=== PATIENT | female | born 1960 | race Hispanic/Latino ===

== ENCOUNTER 2017-02-02 13:50 | Emergency (ER) | payer OTHER ==
[2017-02-02 14:01] VITALS: BP 119/69; RESP 16; TEMP 97.9; O2SAT 100
--- NOTE | 2017-02-02 15:48 | ED PDOC ---
HPI: General Adult Time Seen by Provider: 02/02/17 14:08 Chief Complaint (Nursing): Abnormal Skin Integrity Chief Complaint (Provider): fall History Per: Patient Additional Complaint(s): pt c/o chin lac and L hand pain since trip and fall on sidewalk [employer]. no LOC, h/ a, dizziness, neck pain, cp, abd pain or other injury. Past Medical History Reviewed: Historical Data, Nursing Documentation, Vital Signs Vital Signs: Last Vital Signs Temp 97.9 F 02/02/17 13:57 Pulse 93 H 02/02/17 13:57 Resp 16 02/02/17 13:57 BP 119/69 02/02/17 13:57 Pulse Ox 100 02/02/17 16:01 - Medical History PMH: HTN (no meds) - Family History Family History: States: No Known Family Hx - Social History Current smoker - smoking cessation education provided: No Alcohol: None Drugs: Denies - Immunization History Hx Tetanus Toxoid Vaccination: No - Allergies Allergies/Adverse Reactions: Allergies Allergy/AdvReac Type Severity Reaction Status Date / Time cefdinir Allergy URTICARIA Verified 02/02/17 15:04 strawberry Allergy URTICARIA Verified 02/02/17 15:04 tomato Allergy URTICARIA Verified 02/02/17 15:04 walnut Allergy URTICARIA Verified 02/02/17 15:04 Review of Systems ROS Statement: Except As Marked, All Systems Reviewed And Found Negative Musculoskeletal: Positive for: Hand Pain Physical Exam - Reviewed Nursing Documentation Reviewed: Yes Vital Signs Reviewed: Yes - Physical Exam Appears: Positive for: Non-toxic, No Acute Distress Head Exam: Positive for: ATRAUMATIC, NORMAL INSPECTION, NORMOCEPHALIC Skin: Positive for: Normal Color, Warm, DRY Eye Exam: Positive for: EOMI, Normal appearance, PERRL ENT: Positive for: Other (2cm L shaped chin lac. mandible tender R sided. TMJs nontender. ) Neck: Positive for: Normal, Painless ROM Cardiovascular/Chest: Positive for: Regular Rate, Rhythm Respiratory: Positive for: CNT, Normal Breath Sounds Gastrointestinal/Abdominal: Positive for: Normal Exam, Bowel Sounds, Soft. Negative for: Tenderness Back: Positive for: Normal Inspection Extremity: Positive for: Other (L hand tender 4, 5th MC and hypothenar eminence w/o echymosis or deformity. abrasions to 4, 5th fingers. flex/ext 3/5 per pain. n/v intact distally. other extremities wnl. 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 Negative for: Motor/Sensory Deficits - ECG O2 Sat by Pulse Oximetry: 100 Medical Decision Making Medical Decision Making: L hand xray 5th distal MC fx. 4th MC spiral, comminuted fx. mandible xray read as no acute injury by radiologist. spoke with Dr. Balderas Re hand fxs. pt can be splinted to f/u in office. hand immobilized, chin dermabonded. will refer to for f/u. Procedures - Splinting Location: L hand Hand-Made Type: orthoglass Splint: ulnar Pre-Proc Neuro Vasc Exam: normal Post-Proc Neuro Vasc Exam: normal Progress: pt tolerated well. no complications. - Laceration/Wound Repair Face Wound Length (cm): 2 Wound's Depth, Shape: flap Wound Explored: clean Irrigated w/ Saline (ccs): 500 Wound Repaired With: Steri-strips, Skin adhesive Layer Closure?: No Wound Complexity: Simple Sterile Dressing Applied?: Yes Progress: pt tolerated well. no complications. Disposition - Clinical Impression Clinical Impression: Chin laceration, Fracture, metacarpal - Patient ED Disposition Is Patient to be Admitted: No - Disposition Referrals: Ino Balderas MD [Staff Provider] - Disposition: Routine/Home Disposition Time: 16:40 Condition: GOOD Instructions: Laceration (ED), Head Injury (ED), Hand Fracture (ED) Forms: [facility] ED School/Work Excuse
--- NOTE | 2017-02-02 16:14 | RAD ---
PROCEDURE: Left Hand Radiographs. HISTORY: fall COMPARISON: None. FINDINGS: BONES: There is an acute oblique mildly displaced fracture in the midshaft of the 4th metacarpal. Also noted is an acute nondisplaced fracture in the neck of the 5th metacarpal. There is mild periarticular bone demineralization. JOINTS: The joint spaces are preserved. Bone alignment is normal. SOFT TISSUES: There is moderate ulnar soft tissue swelling. OTHER FINDINGS: None. IMPRESSION: Acute mildly displaced oblique fracture in the midshaft of the 4th metacarpal. Acute nondisplaced fracture in the neck of the 5th metacarpal.
--- NOTE | 2017-02-02 16:27 | RAD ---
PROCEDURE: Mandible HISTORY: Trauma, laceration COMPARISON: None TECHNIQUE: Standard protocol for this study/examination. FINDINGS: No evidence of mandibular fracture. No adjacent soft tissue abnormalities IMPRESSION: No acute findings related to/accounting for the clinical presentation.
[2017-02-02 16:48] VITALS: PULSE 81
== END 2017-02-02 16:47 | disposition home or self-care (01) ==
LOC: H.ER 13:50
DX: S01.81XA Laceration without foreign body of other part of head, initial encounter (principal); S09.90XA Unspecified injury of head, initial encounter; S62.309A Unspecified fracture of unspecified metacarpal bone, initial encounter for closed fracture; W01.0XXA Fall on same level from slipping, tripping and stumbling without subsequent striking against object, initial encounter; Y92.89 Other specified places as the place of occurrence of the external cause; I10 Essential (primary) hypertension